=== PATIENT | male | born 1995 | race Caucasian/White ===

== ENCOUNTER 2021-11-27 09:07 | Emergency (ER) | payer BC ==
[2021-11-27] MEDS ORDERED: HYDROmorphone 0.5 MG/0.5 ML Syringe IVPUSH ONE (09:18)
[2021-11-27] MEDS ORDERED: Ondansetron 4 MG/2 ML SDV IVPUSH ONE (09:18)
[2021-11-27] MEDS ORDERED: Sodium Chloride 0.9% 1,000 ML IV SCH (09:30)
[2021-11-27 09:54] LABS: ESTIMATED GFR 96 mL/min (>60)
[2021-11-27] MEDS ORDERED: Ketorolac 30 MG/ML SDV IVPUSH ONE (10:14)
== END 2021-11-27 11:08 | disposition home or self-care (01) ==
LOC: EDBD 09:07 → JP.ED 09:07
DX: N13.2 Hydronephrosis with renal and ureteral calculous obstruction (principal)
CPT/HCPCS: 36415; 74176; 80053; 83690; 85025; 96361; 96374; 96375; 99284; J1170; J1885; J2405; J7030